=== PATIENT | male | born 1960 | race Caucasian/White ===

== ENCOUNTER 2020-08-15 16:09 | Outpatient (CLI) | payer OTHER ==
[2020-08-15 16:38] LABS: PTT 45.8 sec (22.9-36.1)
[2020-08-15 16:39] LABS: Prothrombin Time 42.6 sec (12.0-14.7)
[2020-08-15 16:49] LABS: INR-International Normal Ratio 4.3
[2020-08-15 17:05] LABS: #Eosinphils 0.1 thou/uL (0.0-0.7); #Lymphocytes 0.8 thou/uL (1.20-3.40); #Monocytes 0.3 thou/uL (0.11-0.59); #Neutrophils 1.7 thou/uL (1.40-6.50); %Basophils 0.4 % (0.0-1.0); %Eosinophils 3.6 % (0.0-10.0); %Lymphocytes 26.9 % (21.0-51.0); %Monocytes 10.5 % (0.0-10.0); %Neutrophils 58.7 % (42.0-75.0); Hemoglobin 8.4 g/dL (14.0-18.0); Mean Corpuscular HGB CONC 30.9 g/dL (32.0-36.0); Mean Corpuscular Hemoglobin 27.3 pg (27.0-31.0); Mean Corpuscular Volume 88.4 fL (78.0-98.0); Mean Platelet Volume 6.6 fL (7.4-10.4); RBC Distribution Width 15.5 % (11.5-14.5); Red Blood Cell (RBC) Count 3.08 mill/uL (4.70-6.10); White Blood Cell (WBC) Count 2.9 thou/uL (4.8-10.8)
[2020-08-15 17:06] LABS: Platelet Morphology Comment Appears Decreased
[2020-08-15 17:07] LABS: Platelet Count 60 thou/uL (130-400)
== END 2020-08-15 16:10 | disposition home or self-care (01) ==
LOC: NAV LABSP 16:09
PROVIDERS: ATTEND Internal Medicine
DX: I10 Essential (primary) hypertension (principal); E11.9 Type 2 diabetes mellitus without complications; E03.9 Hypothyroidism, unspecified
CPT/HCPCS: 85025; 85610; 85730

== ENCOUNTER 2020-08-15 18:21 | Emergency (ER) | payer OTHER ==
[2020-08-15 18:52] LABS: #Eosinphils 0.2 thou/uL (0.0-0.7); #Monocytes 0.4 thou/uL (0.11-0.59); #Neutrophils 1.6 thou/uL (1.40-6.50); %Basophils 0.7 % (0.0-1.0); %Eosinophils 5.4 % (0.0-10.0); %Lymphocytes 31.3 % (21.0-51.0); %Monocytes 12.6 % (0.0-10.0); Hemoglobin 8.2 g/dL (14.0-18.0); Mean Corpuscular HGB CONC 29.9 g/dL (32.0-36.0); Mean Corpuscular Volume 90.2 fL (78.0-98.0); Mean Platelet Volume 6.6 fL (7.4-10.4); Platelet Count 63 thou/uL (130-400); Red Blood Cell (RBC) Count 3.03 mill/uL (4.70-6.10); White Blood Cell (WBC) Count 3.1 thou/uL (4.8-10.8)
[2020-08-15 19:03] LABS: Prothrombin Time 41.3 sec (12.0-14.7)
[2020-08-15 19:08] LABS: INR-International Normal Ratio 4.2
== END 2020-08-15 20:18 | disposition still patient (30) ==
LOC: NAV ERS 18:21
DX: D69.6 Thrombocytopenia, unspecified (principal); R79.1 Abnormal coagulation profile; I10 Essential (primary) hypertension; E78.5 Hyperlipidemia, unspecified; K21.9 Gastro-esophageal reflux disease without esophagitis; E13.9 Other specified diabetes mellitus without complications
CPT/HCPCS: 99283